=== PATIENT | female | born 1965 | race American Indian/Alaskan Native ===

== ENCOUNTER → 2022-01-22 | Day surgery (SDC) | payer BC | END | disposition home or self-care (01) | LOC: JRADIR 09:14 | PROVIDERS: ATTEND Internal Medicine Endocrinology, Diabetes & Metabolism | PROC: 0G9H3ZX Drainage of Right Thyroid Gland Lobe, Percutaneous Approach, Diagnostic (ICD-10-PCS; principal; 2022-01-22) | DX: E04.1 Nontoxic single thyroid nodule (principal) | CPT/HCPCS: 10005; 76942; 88173; 88305-TC ==

== ENCOUNTER 2022-05-24 16:59 | Emergency (ER) | payer BC ==
[2022-05-24 17:04] VITALS: BP 142/88; RESP 18; TEMP 98.1; BMI 32.1
[2022-05-24] MEDS ORDERED: ACETAMINOPHEN 500 MG TABLET (FP) PO ONE (18:43)
[2022-05-24] MEDS ORDERED: LIDOCAINE 5% TOPICAL PATCH TP ONE (18:43)
[2022-05-24] MEDS ORDERED: KETOROLAC TROMETHAMINE 15 MG/ML VIAL IM ONE (18:52)
[2022-05-24] MEDS ORDERED: KETOROLAC TROMETHAMINE 15 MG/ML VIAL ONE (19:17)
[2022-05-24] MEDS ORDERED: LIDOCAINE 5% TOPICAL PATCH ONE (19:17)
[2022-05-24] MEDS ORDERED: ACETAMINOPHEN 500 MG TABLET (FP) ONE (19:18)
[2022-05-24] MEDS ORDERED: CYCLOBENZAPRINE HCL 10 MG TABLET (FP) PO ONE (20:07)
[2022-05-24] MEDS ORDERED: CYCLOBENZAPRINE HCL 10 MG TABLET (FP) ONE (20:29)
[2022-05-24 21:02] VITALS: PULSE 80
[2022-05-24] MEDS ORDERED: LIDOCAINE PATCH REMOVAL MC ONE (22:00)
== END 2022-05-24 21:02 | disposition home or self-care (01) ==
LOC: JERFT 16:59
PROC: 3E023GC Introduction of Other Therapeutic Substance into Muscle, Percutaneous Approach (ICD-10-PCS; principal; 2022-05-24)
DX: M79.605 Pain in left leg (principal); M54.89 Other dorsalgia
CPT/HCPCS: 72170-TC-FY; 73502-TC-LT-FY; 99284-25

== ENCOUNTER 2023-01-27 14:54 | Emergency (ER) | payer BC ==
[2023-01-27 15:01] VITALS: RESP 18; TEMP 98.2; BMI 32.8
[2023-01-27] MEDS ORDERED: ACETAMINOPHEN 1000 MG/100 ML BAG IVPB ONE (17:19)
[2023-01-27] MEDS ORDERED: METOCLOPRAMIDE HCL INJECTION 10 MG/2 ML VIAL IVPB ONE (17:19)
[2023-01-27] MEDS ORDERED: LACTATED RINGERS SOLUTION 1000 ML INFUS.BAG IV ONE (17:19)
[2023-01-27] MEDS ORDERED: ACETAMINOPHEN INJECTION 100 ML IVPB ONE (17:45)
[2023-01-27] MEDS ORDERED: METOCLOPRAMIDE HCL INJECTION 10 MG/2 ML VIAL ONE (17:45)
[2023-01-27 17:58] LABS: BASO % 0.9 % (0-2.0); EOS % 3.5 % (0-4.5); HEMATOCRIT 38.1 % (32.4-45.2); HEMOGLOBIN 12.5 GM/dL (10.7-15.3); LYMPH % 33.1 % (8-40); MCH 27.8 pg (25.7-33.7); MCHC 32.8 g/dl (32.0-36.0); MEAN CELL VOLUME 84.9 fl (80-96); MEAN PLT VOLUME 7.3 fl (7.5-11.1); MONO % 6.9 % (3.8-10.2); NEUT % 55.6 % (42.8-82.8); PLATELET COUNT 347 10^3/uL (134-434); RBC 4.49 M/mm3 (3.60-5.2); RDW 13.3 % (11.6-15.6); WHITE BLOOD COUNT 5.6 K/mm3 (4.0-10.0)
[2023-01-27 18:04] LABS: INR 0.99 (0.83-1.09); PROTHROMBIN TIME (PATIENT) 11.5 SEC (9.7-13.0)
[2023-01-27 18:07] LABS: ACTIVATED PTT 33.5 SECONDS (25.2-36.5)
[2023-01-27 18:13] LABS: POTASSIUM 3.8 mmol/L (3.5-5.1)
[2023-01-27 18:16] LABS: CALCIUM 9.5 mg/dL (8.5-10.1)
[2023-01-27 18:17] LABS: ALBUMIN 4.2 g/dl (3.4-5.0); BLOOD UREA NITROGEN 12.5 mg/dL (7-18)
[2023-01-27 18:19] LABS: CREATININE 0.9 mg/dL (0.55-1.3)
[2023-01-27 18:21] LABS: TOT PROT 7.9 g/dl (6.4-8.2)
[2023-01-27 18:22] LABS: BILIRUBIN,TOTAL 0.4 mg/dL (0.2-1)
[2023-01-27 19:21] VITALS: BP 124/80; PULSE 82
== END 2023-01-27 19:21 | disposition home or self-care (01) ==
LOC: JER 14:54
PROC: 3E033NZ Introduction of Analgesics, Hypnotics, Sedatives into Peripheral Vein, Percutaneous Approach (ICD-10-PCS; principal; 2023-01-27)
PROC: 3E033GC Introduction of Other Therapeutic Substance into Peripheral Vein, Percutaneous Approach (ICD-10-PCS; 2023-01-27)
DX: R51.9 Headache, unspecified (principal); R42 Dizziness and giddiness; M54.2 Cervicalgia
CPT/HCPCS: 36415; 70450-TC; 71045-TC-FY; 80053; 84439; 84443; 84484; 85025; 85610; 85730; 93005; 93010; 99285-25

== ENCOUNTER 2024-02-12 04:18 | Day surgery (SDC) | payer BC ==
[2024-02-12] MEDS: PHENAZOPYRIDINE HCL 100 MG TABLET (FP) PO ONE (06:35)
[2024-02-12] MEDS ORDERED: MIDAZOLAM HCL 2 MG/2 ML SINGLE DOSE VIAL ONE (07:41)
[2024-02-12] MEDS ORDERED: ROCURONIUM BROMIDE 50 MG/5 ML SYRINGE ONE (07:41)
[2024-02-12] MEDS ORDERED: PROPOFOL 20 ML ONE (07:41)
[2024-02-12] MEDS: ceFAZolin SODIUM 1 GM VIAL IVPB ONE (08:12)
[2024-02-12] MEDS ORDERED: HYDROmorphone HCl 2 MG/ML VIAL ONE (08:35)
[2024-02-12] MEDS ORDERED: ONDANSETRON 4 MG/2 ML VIAL ONE (08:52)
[2024-02-12] MEDS ORDERED: DEXAMETHASONE SOD PHOSPHATE 4 MG/1 ML VIAL ONE (08:52)
[2024-02-12] MEDS ORDERED: ACETAMINOPHEN INJECTION 100 ML ONE (09:13)
[2024-02-12] MEDS ORDERED: KETOROLAC TROMETHAMINE 30 MG/1 ML VIAL ONE (09:13)
[2024-02-12] MEDS ORDERED: SUGAMMADEX SODIUM 200 MG/2 ML VIAL ONE (09:21)
[2024-02-12] MEDS ORDERED: SIMETHICONE 80 MG TAB.CHEW (FP) PO PRN (09:39)
[2024-02-12] MEDS ORDERED: oxyCODONE HCL 5 MG TABLET PO PRN ×2 (09:39)
[2024-02-12] MEDS ORDERED: DOCUSATE SODIUM 100 MG CAPSULE (FP) PO PRN (09:39)
[2024-02-12] MEDS ORDERED: ONDANSETRON 4 MG/2 ML VIAL IVPUSH PRN (09:39)
[2024-02-12] MEDS ORDERED: BISACODYL 5 MG TABLET.DR (FP) PO PRN (09:39)
[2024-02-12] MEDS ORDERED: ZOLPIDEM TARTRATE 5 MG TABLET PO PRN (09:42)
[2024-02-12] MEDS ORDERED: ROSUVASTATIN CA 5 MG TABLET PO SCH (10:00)
[2024-02-12] MEDS ORDERED: PATIENT'S OWN MEDICATION (NON-FORMULARY) (Vit C/E/Zn/Coppr/Lutein/Zeaxan [Preservision Are PO SCH (10:00)
[2024-02-12] MEDS ORDERED: PANTOPRAZOLE 40 MG TABLET PO PRN (10:00)
[2024-02-12] MEDS: ACETAMINOPHEN 1000 MG/100 ML BAG IVPB ONE (10:26)
[2024-02-12] MEDS: CEFAZOLIN 2 GM in DEXTROSE 5%-WATER - 100 ML IVPB ONE (10:26)
[2024-02-12] MEDS: TRANEXAMIC ACID 1000 MG/10 ML VIAL IVPUSH ONE (10:27)
[2024-02-12] MEDS: CEFAZOLIN 1 GM/D5W 1 GM/50 ML BAG IVPB SCH ×2 (10:28→17:18)
[2024-02-12] MEDS ORDERED: HYDROmorphone HCL CARPU-JECT 2 MG/1 ML DISP.SYRIN ONE (11:05)
[2024-02-12] MEDS: HYDROmorphone HCl 2 MG/ML VIAL IVPUSH ONE (11:10)
[2024-02-12] MEDS: LACTATED RINGERS SOLUTION 1,000 ML IV SCH (11:55)
[2024-02-12] MEDS ORDERED: IBUPROFEN 800 MG/8 ML IJ IVPB SCH (12:00)
[2024-02-12] MEDS: GABAPENTIN 300 MG CAPSULE PO SCH (16:35)
[2024-02-12 16:55] LABS: HEMATOCRIT 35.8 % (32.4-45.2); HEMOGLOBIN 11.8 GM/dL (10.7-15.3); MEAN PLT VOLUME 7.4 fl (7.5-11.1); PLATELET COUNT 281 10^3/uL (134-434); RBC 4.22 M/mm3 (3.60-5.2); RDW 12.9 % (11.6-15.6); WHITE BLOOD COUNT 9.8 K/mm3 (4.0-10.0)
[2024-02-12 17:12] LABS: POTASSIUM 4.1 mmol/L (3.5-5.1)
[2024-02-12 17:15] LABS: BLOOD UREA NITROGEN 13.7 mg/dL (7-18); CALCIUM 9.4 mg/dL (8.5-10.1)
[2024-02-12] MEDS: TRIAMTERENE AND HCTZ - 37.5 MG/25 MG CAPSULE PO SCH (17:17)
[2024-02-12 17:19] LABS: CREATININE 1.1 mg/dL (0.55-1.3)
[2024-02-12] MEDS: ACETAMINOPHEN 325 MG TABLET (FP) PO SCH (18:16)
[2024-02-12] MEDS: IBUPROFEN 800 MG/8 ML IJ IVPB SCH (19:11)
[2024-02-12 19:26] VITALS: RESP 20
[2024-02-12] MEDS: ROSUVASTATIN CA 5 MG TABLET PO SCH (21:07)
[2024-02-13 05:56] VITALS: BP 100/70; PULSE 58; TEMP 98.4
[2024-02-13] MEDS: ASPIRIN 81 MG CHEWABLE TABLETS PO SCH (09:43)
[2024-02-13] MEDS: ENOXAPARIN NA (PORCINE) 40 MG/0.4 ML DISP.SYRIN SQ SCH (09:43)
[2024-02-13 11:11] LABS: HEMATOCRIT 34.3 % (32.4-45.2); HEMOGLOBIN 11.3 GM/dL (10.7-15.3); MCH 28.4 pg (25.7-33.7); MCHC 32.9 g/dl (32.0-36.0); MEAN CELL VOLUME 86.4 fl (80-96); MEAN PLT VOLUME 7.9 fl (7.5-11.1); PLATELET COUNT 268 10^3/uL (134-434); RBC 3.97 M/mm3 (3.60-5.2); RDW 12.8 % (11.6-15.6); WHITE BLOOD COUNT 7.5 K/mm3 (4.0-10.0)
[2024-02-13 11:26] LABS: POTASSIUM 3.8 mmol/L (3.5-5.1)
[2024-02-13 11:37] LABS: BLOOD UREA NITROGEN 11.4 mg/dL (7-18); CALCIUM 9.6 mg/dL (8.5-10.1)
== END 2024-02-13 14:45 | disposition home or self-care (01) ==
LOC: JASUSAT 04:18 → J8W 12:06 → JASUSAT 02-13 14:45
PROVIDERS: ATTEND Obstetrics & Gynecology
PROC: 8E0W4CZ Robotic Assisted Procedure of Trunk Region, Percutaneous Endoscopic Approach (ICD-10-PCS; 2024-02-12)
PROC: 0UT9FZZ Resection of Uterus, Via Natural or Artificial Opening With Percutaneous Endoscopic Assistance (ICD-10-PCS; principal; 2024-02-12 07:30)
PROC: 0UT7FZZ Resection of Bilateral Fallopian Tubes, Via Natural or Artificial Opening With Percutaneous Endoscopic Assistance (ICD-10-PCS; 2024-02-12 07:30)
PROC: 0UT1FZZ Resection of Left Ovary, Via Natural or Artificial Opening With Percutaneous Endoscopic Assistance (ICD-10-PCS; 2024-02-12 07:30)
DX: N95.0 Postmenopausal bleeding (principal); D27.1 Benign neoplasm of left ovary
CPT/HCPCS: 58552; S2900; 36415; 80048; 85027; 88305-TC; 88309-TC; 94010; 94760; J0131

== ENCOUNTER 2024-03-24 04:14 | Day surgery (SDC) | payer BC ==
[2024-03-22 15:46] VITALS: BMI 32.8
[2024-03-24] MEDS ORDERED: MIDAZOLAM HCL 2 MG/2 ML SINGLE DOSE VIAL ONE (10:00)
[2024-03-24] MEDS ORDERED: LIDOCAINE HCL/PF 2% SDV 5ML VIAL ONE (10:00)
[2024-03-24] MEDS ORDERED: PROPOFOL 40 ML ONE (10:00)
[2024-03-24] MEDS ORDERED: LIDOCAINE 1%/EPI 1:100000 (20 ML MULTI DOSE VIAL) ONE (10:11)
[2024-03-24] MEDS ORDERED: MICROFIBRILLAR COLLAGEN (AVITENE) 1 EACH POWD.PACK TP ONE (10:30)
[2024-03-24] MEDS: ceFAZolin SODIUM 1 GM VIAL IVPB ONE (10:48)
[2024-03-24] MEDS ORDERED: ONDANSETRON 4 MG/2 ML VIAL ONE (10:54)
[2024-03-24] MEDS ORDERED: DEXAMETHASONE SOD PHOSPHATE 4 MG/1 ML VIAL ONE ×2 (10:54→12:00)
[2024-03-24] MEDS: LIDOCAINE 1%/EPI 1:100000 (20 ML MULTI DOSE VIAL) IJ ONE ×2 (11:00)
[2024-03-24] MEDS ORDERED: KETOROLAC TROMETHAMINE 30 MG/1 ML VIAL ONE (11:59)
[2024-03-24] MEDS ORDERED: ONDANSETRON 4 MG/2 ML VIAL IVPUSH PRN (12:19)
[2024-03-24] MEDS ORDERED: oxyCODONE HCL 5 MG TABLET PO PRN (12:19)
[2024-03-24] MEDS ORDERED: ACETAMINOPHEN INJECTION 100 ML ONE (12:34)
[2024-03-24] MEDS: ACETAMINOPHEN 1000 MG/100 ML BAG IVPB ONE (12:39)
[2024-03-24] MEDS: LACTATED RINGERS SOLUTION 1,000 ML IV SCH (12:58)
[2024-03-24 14:47] VITALS: PULSE 66; RESP 16
[2024-03-24] MEDS: oxyCODONE HCL 5 MG TABLET PO ONE (14:48)
[2024-03-24] MEDS ORDERED: oxyCODONE HCL 5 MG TABLET ONE (14:50)
[2024-03-24 16:55] VITALS: BP 131/80; TEMP 98.4
== END 2024-03-24 17:00 | disposition home or self-care (01) ==
LOC: JASU-SURG 04:14
PROVIDERS: ATTEND Surgery
PROC: 0GSR0ZZ Reposition Parathyroid Gland, Open Approach (ICD-10-PCS; 2024-03-24)
PROC: 0GTH0ZZ Resection of Right Thyroid Gland Lobe, Open Approach (ICD-10-PCS; principal; 2024-03-24 10:00)
DX: D34 Benign neoplasm of thyroid gland (principal)
CPT/HCPCS: 86850; 86900; 86901; 88307-TC; 94760; J0131

== ENCOUNTER 2024-07-08 13:41 | Emergency (ER) | payer BC ==
[2024-07-08 13:50] VITALS: BP 129/76; PULSE 85; RESP 18; TEMP 98.5; BMI 33.2
[2024-07-08] MEDS: KETOROLAC TROMETHAMINE 30 MG/1 ML VIAL IM ONE (15:36)
[2024-07-08] MEDS ORDERED: LIDOCAINE 4% PATCH TP ONE (15:37)
[2024-07-08] MEDS ORDERED: IBUPROFEN 400 MG TABLET (FP) PO ONE (15:37)
[2024-07-08] MEDS: LIDOCAINE 5% TOPICAL PATCH TP ONE (15:40)
[2024-07-08] MEDS: IBUPROFEN 600 MG TABLET (FP) PO ONE (15:40)
[2024-07-08] MEDS ORDERED: LIDOCAINE PATCH REMOVAL MC SCH (22:00)
== END 2024-07-08 15:52 | disposition home or self-care (01) ==
LOC: JERFT 13:41
DX: M25.562 Pain in left knee (principal)
CPT/HCPCS: 99283-25

== ENCOUNTER 2024-11-11 06:31 | Day surgery (SDC) | payer BC ==
[2024-11-10 10:22] VITALS: BMI 34.2
[2024-11-11 10:23] VITALS: BP 106/64; PULSE 69; RESP 18; TEMP 97.7
== END 2024-11-11 10:45 | disposition home or self-care (01) ==
LOC: JASU-ENDO 06:31
PROVIDERS: ATTEND Internal Medicine Gastroenterology
PROC: 0DB78ZX Excision of Stomach, Pylorus, Via Natural or Artificial Opening Endoscopic, Diagnostic (ICD-10-PCS; 2024-11-11)
PROC: 0DB68ZX Excision of Stomach, Via Natural or Artificial Opening Endoscopic, Diagnostic (ICD-10-PCS; 2024-11-11)
PROC: 0DBL8ZX Excision of Transverse Colon, Via Natural or Artificial Opening Endoscopic, Diagnostic (ICD-10-PCS; 2024-11-11)
PROC: 0DB98ZX Excision of Duodenum, Via Natural or Artificial Opening Endoscopic, Diagnostic (ICD-10-PCS; principal; 2024-11-11 09:00)
DX: Z12.11 Encounter for screening for malignant neoplasm of colon (principal); D12.3 Benign neoplasm of transverse colon; K57.30 Diverticulosis of large intestine without perforation or abscess without bleeding; K44.9 Diaphragmatic hernia without obstruction or gangrene; K22.2 Esophageal obstruction; K29.80 Duodenitis without bleeding; K29.70 Gastritis, unspecified, without bleeding
CPT/HCPCS: 88305-TC; 88342-TC